=== PATIENT | male | born 1990 | race Caucasian/White ===

== ENCOUNTER 2016-07-16 11:04 | Emergency (ER) | payer MEDICAID ==
[~2016-07-16] VITALS: Ht 177.8 cm; Wt 77.0 kg
[2016-07-16 13:26] VITALS: BP 109/64
[2016-07-16] MEDS ORDERED: KETOROLAC TROMETHAMINE 60 MG/2 ML VIAL IM ONE (14:45)
== END 2016-07-16 14:46 | disposition home or self-care (01) ==
LOC: EMS 11:07
DX: K04.7 Periapical abscess without sinus (principal); F12.90 Cannabis use, unspecified, uncomplicated; F17.200 Nicotine dependence, unspecified, uncomplicated
CPT/HCPCS: 96372; 99283; J1885

== ENCOUNTER 2016-08-31 12:08 | Emergency (ER) | payer MEDICAID, OTHER ==
[~2016-08-31] VITALS: Ht 177.8 cm; Wt 61.8 kg
[2016-08-31] MEDS ORDERED: BACITRACIN 0.9 GM PACKET OINTMENT TP ONE (13:00)
[2016-08-31 14:11] VITALS: BP 119/72
== END 2016-08-31 14:12 | disposition home or self-care (01) ==
LOC: EMS 12:09
DX: S61.012A Laceration without foreign body of left thumb without damage to nail, initial encounter (principal); F17.210 Nicotine dependence, cigarettes, uncomplicated; F12.90 Cannabis use, unspecified, uncomplicated; W45.8XXA Other foreign body or object entering through skin, initial encounter; Y93.G3 Activity, cooking and baking; Y92.89 Other specified places as the place of occurrence of the external cause; Y99.8 Other external cause status
CPT/HCPCS: 99283